=== PATIENT | female | born 1970 | race African-American/Black ===

== ENCOUNTER 2016-12-14 11:58 | Emergency (ER) | payer OTHER ==
[~2016-12-14] VITALS: Ht 157.5 cm; Wt 75.0 kg
[2016-12-14 12:30] VITALS: BP 142/77
== END 2016-12-14 14:10 | disposition left against medical advice (07) ==
LOC: ER 13:08
DX: M25.512 Pain in left shoulder (principal); Z53.21 Procedure and treatment not carried out due to patient leaving prior to being seen by health care provider

== ENCOUNTER 2017-10-28 11:19 | Emergency (ER) | payer OTHER | END 2017-10-28 12:57 | disposition left against medical advice (07) | LOC: ER 11:19 | DX: M79.606 Pain in leg, unspecified (principal); Z53.21 Procedure and treatment not carried out due to patient leaving prior to being seen by health care provider ==